=== PATIENT | female | born 1965 | race Caucasian/White ===

== ENCOUNTER 2017-03-31 07:36 | Observation (INO) | payer OTHER ==
[2017-03-31] MEDS ORDERED: Methylene Blue 50 MG/10 ML Ampule IV ONE (07:39)
[2017-03-31] MEDS: Lactated Ringers 1,000 ML IV SCH (08:02)
[2017-03-31] MEDS ORDERED: Scopolamine 1.5 MG Transdermal Patch TRDERM PRN (08:20)
--- NOTE | 2017-03-31 08:24 | PCM.PREANE ---
Preanesthetic Assessment - Anesthesia/Transfusion/Family Hx Anesthesia History: Prior Anesthesia Without Reaction Type of Anesthesia Reaction: Excessive Nausea/Vomiting Family History of Anesthesia Reaction: No Transfusion History: No Prior Transfusion(s) - Review of Systems General: No Symptoms Pulmonary: No Symptoms Cardiovascular: No Symptoms Gastrointestinal: No symptoms Neurological: No Symptoms Other: Reports: None - Physical Assessment O2 Sat by Pulse Oximetry: 98 Respiratory Rate: 16 Vital Signs: Last Vital Signs Temp 36.4 C 03/31/17 08:06 Pulse 58 L 03/31/17 08:06 Resp 16 03/31/17 08:06 BP 121/56 L 03/31/17 08:06 Pulse Ox 98 03/31/17 08:06 Height: 1.68 m Weight: 84.822 kg ASA Class: 3 Mental Status: Alert & Oriented x3 Airway Class: Mallampati = 2 Dentition: Reports: Normal Dentition (permanent retainer at the bottom) Thyro-Mental Finger Breadths: 3 Mouth Opening Finger Breadths: 2 ROM/Head Extension: Full Lungs: Clear to auscultation, Normal respiratory effort Cardiovascular: Regular Rate, Regular Rhythm - Allergies Allergies/Adverse Reactions: Allergies Allergy/AdvReac Type Severity Reaction Status Date / Time erythromycin base Allergy Rash Verified 03/25/17 13:00 Sulfa (Sulfonamide Allergy Rash Verified 03/25/17 13:00 Antibiotics) - Blood Blood Available: No - Anesthesia Plan Pre-Op Medication Ordered: None - Acknowledgements Anesthesia Type Planned: General Anesthesia Pt an Appropriate Candidate for the Planned Anesthesia: Yes Alternatives and Risks of Anesthesia Discussed w Pt/Guardian: Yes Pt/Guardian Understands and Agrees with Anesthesia Plan: Yes PreAnesthesia Questionnaire HEENT History: Reports: None Cardiovascular History: Reports: Other (See Below) (h/o hypertension) Gastrointestinal History: Reports: None Genitourinary History: Reports: None Psychiatric History: Reports: Anxiety, Depression Oncologic (Cancer) History: Reports: Breast (rt. breast cancer- received 5 cycles of chemo) - Past Surgical History Head Surgeries/Procedures: Reports: None HEENT Surgical History: Reports: Tonsillectomy GI Surgical History: Reports: Bariatric Procedure, Cholecystectomy Other GI Surgeries/Procedures: lap band Female Surgical History: Reports: Hysterectomy, Mastectomy, Salpingo- Oophorectomy Other Surgical History Comment: port-a-cath placement and removal on the left, than placement on the righr side - SUBSTANCE USE Smoking Status *Q: Never Smoker Recreational Drug Use History: No - HOME MEDS Home Medications: Home Meds Diphenoxylate HCl/Atropine [Diphenoxylate-Atrop 2.5-0.025] 1 tab PO ASDIRECTED PRN 03/25/17 [History] Escitalopram Oxalate 5 mg PO DAILY 03/25/17 [History] LORazepam [Ativan] 0.5 mg PO ASDIRECTED PRN 03/25/17 [History] Melatonin 3 mg PO ASDIRECTED PRN 03/25/17 [History] Metoclopramide HCl 10 mg PO ASDIRECTED PRN 03/25/17 [History] Ondansetron HCl [Zofran] 8 mg PO ASDIRECTED PRN 03/25/17 [History] - CURRENT (IN HOUSE) MEDS Current Meds: Current Medications Hydrocodone Bitart/Acetaminophen ([place] 325-5 Mg) 1 tab PO Q4H PRN PRN Reason: Pain Bupivacaine HCl/Epinephrine Bitart (Marcaine 0.25%/Epinephrine 1:200,000) 40 ml INJECT ONETIME ONE Stop: 03/31/17 09:01 Cephalexin (Keflex) 500 mg PO Q6HR [facility] Lactated Ringer's (Ringers, Lactated) 1,000 mls @ 125 mls/hr IV ASDIRECTED [facility] Last Admin: 03/31/17 08:02 Dose: 125 mls/hr Cefazolin Sodium/Dextrose 2 gm (/ Premix) 50 mls @ 100 mls/hr IV ONETIME ONE Stop: 03/31/17 09:29 Ibuprofen (Motrin) 600 mg PO Q6H PRN PRN Reason: Pain Morphine Sulfate (Morphine) 2 mg IVPUSH Q2H PRN PRN Reason: Pain Ondansetron HCl (Zofran Odt) 4 mg PO Q4H PRN PRN Reason: Nausea/Vomiting Ondansetron HCl (Zofran) 4 mg IVPUSH Q6H PRN PRN Reason: Nausea/Vomiting Discontinued Medications Methylene Blue (Provayblue) Confirm Administered Dose 50 mg IV .STK-MED ONE Stop: 03/31/17 07:40
[2017-03-31] MEDS ORDERED: ceFAZolin 2 GM in Premix Bag 1 BAG IV ONE (09:00)
[2017-03-31] MEDS ORDERED: Bupivacaine 0.25%/EPINEPHrine 1:200,000 10 ML SDV INJECT ONE (09:00)
[2017-03-31] MEDS ORDERED: Bupivacaine 0.25%/EPINEPHrine 1:200,000 10 ML SDV ONE ×2 (09:10→13:20)
[2017-03-31] MEDS ORDERED: Gentamicin 40 MG/ML 2 ML Vial ONE (09:10)
[2017-03-31] MEDS ORDERED: ceFAZolin 1 GM Vial ONE (09:11)
[2017-03-31] MEDS ORDERED: EPINEPHrine 1 MG/ML SDV ONE (09:11)
[2017-03-31] MEDS ORDERED: Lidocaine 2% 5 ML SDV ONE (12:38)
[2017-03-31] MEDS ORDERED: Midazolam 1 MG/ML 2 ML SDV ONE (12:39)
[2017-03-31] MEDS ORDERED: Propofol 200 MG/20 ML SDV ONE ×2 (12:39→14:54)
[2017-03-31] MEDS ORDERED: fentaNYL 100 MCG/2 ML SDV ONE ×2 (12:39→15:46)
[2017-03-31] MEDS ORDERED: fentaNYL 250 MCG/5 ML SDV ONE (12:39)
[2017-03-31] MEDS ORDERED: Succinylcholine/Normal Saline 200 MG/10 ML Syringe ONE (12:40)
[2017-03-31] MEDS ORDERED: Ondansetron 4 MG/2 ML SDV ONE (12:40)
[2017-03-31] MEDS ORDERED: HYDROmorphone 2 MG/ML Syringe ONE (12:47)
[2017-03-31] MEDS ORDERED: Bupivacaine Liposome 1.3% 20 ML SDV INJECT ONE (14:56)
[2017-03-31] MEDS ORDERED: Neostigmine Methylsulfate 1 MG/ML 5 ML Syringe ONE (15:05)
[2017-03-31] MEDS ORDERED: Rocuronium 10 MG/ML 10 ML Syringe ONE ×2 (15:05→17:09)
[2017-03-31] MEDS ORDERED: Promethazine 25 MG/ML SDV IM PRN (17:33)
--- NOTE | 2017-03-31 19:01 | PCM.OPNOTE ---
- General Post-Op/Procedure Note Date of Surgery/Procedure: 03/31/17 Operative Procedure(s): bilatera breast reconstruction with submuscular silicone implant and allomax (after [place] - bilateral mastectomy and right axillary dissection.) Pre Op Diagnosis: breast cancer - need for reconstruction Post-Op Diagnosis: Same Anesthesia Technique: General ET tube, Local Primary Surgeon: Luciana Epstein Mine Technician: Deb Thomas Complications: None Condition: Good
[2017-03-31] MEDS: fentaNYL 100 MCG/2 ML SDV IVPUSH PRN ×2 (19:14→19:22)
--- NOTE | 2017-03-31 19:31 | PCM.POSTAN ---
POST ANESTHESIA ASSESSMENT - MENTAL STATUS Mental Status: alert, oriented - RESPIRATORY Respiratory Status: respiratory rate WNL, airway patent, O2 saturation stable - CARDIOVASCULAR CV Status: pulse rate WNL, blood pressure stable - GASTROINTESTINAL GI Status: no symptoms - POST OP HYDRATION Hydration Status: adequate & stable
[2017-03-31] MEDS: Ondansetron 4 MG/2 ML SDV IVPUSH PRN (20:19)
[2017-03-31] MEDS: Morphine 2 MG/ML Syringe IVPUSH PRN ×2 (20:20→21:49)
--- NOTE | 2017-03-31 20:50 | PCM48HPAN ---
Post Anesthesia Note - EVALUATION WITHIN 48HRS OF ANESTHETIC Vital Signs in Normal Range: Yes Patient Participated in Evaluation: Yes Respiratory Function Stable: Yes Airway Patent: Yes Cardiovascular Function Stable: Yes Hydration Status Stable: Yes Pain Control Satisfactory: Yes Nausea and Vomiting Control Satisfactory: Yes Mental Status Recovered: Yes
[2017-03-31] MEDS: Cephalexin 500 MG Cap PO SCH (20:52)
[2017-03-31] MEDS: Cyclobenzaprine 10 MG Tab PO SCH (21:47)
[2017-03-31] MEDS: Acetaminophen/HYDROcodone 325-5 MG Tab PO PRN (21:48)
--- NOTE | 2017-04-01 00:03 | OR ---
SURGEON: RUSSELL CARTY MD DATE OF PROCEDURE: 03/31/2017 PREOPERATIVE DIAGNOSIS: Invasive ductal carcinoma, right breast. POSTOPERATIVE DIAGNOSIS: Invasive ductal carcinoma, right breast. PROCEDURE PERFORMED: Bilateral mastectomy, left axillary sentinel lymph node biopsy, level 1 and 2 right-sided axillary lymph node dissection. ASSISTANTS: event marketing assistant: Dr. Luciana Epstein, second per diem physical therapist assistant: MICHELA Perez. ANESTHESIA: General endotracheal anesthesia. FLUIDS: Please see anesthesia record. URINE OUTPUT: Please see anesthesia record. ESTIMATED BLOOD LOSS: Please see Dr. Luciana Epstein's note for final EBL. During my portion of the case, the patient had approximately 100 mL of blood loss. FINDINGS: Three sentinel lymph nodes taken from the left axilla negative for malignancy, bilateral mastectomy, and level 1 and 2 axillary lymph node dissection on the right side with preservation of the thoracodorsal and long thoracic nerves. COMPLICATIONS: None. INDICATIONS: The patient is a 51-year-old female, who presents with stage III invasive ductal carcinoma of the right breast. The patient underwent neoadjuvant chemotherapy and presented for surgical consultation. After discussion of the options, the patient would like a bilateral mastectomy. Given axillary lymph node involvement in her initial imaging, she will need a right axillary lymph node dissection. The patient had a questionable lesion on the left, so the decision was made to perform a sentinel lymph node biopsy on the left. The patient and I discussed the procedure as well as expected perioperative course. We discussed the risks, including bleeding, infection, or damage to surrounding structures, particularly lymphedema of either arm, but more so on the right. We discussed damage of the nerves within the right axilla. The patient verbalized understanding and wishes to proceed. PROCEDURE IN DETAIL: The patient was brought to the operating room and placed on the OR table in supine position. A time-out was completed verifying the patient's name, age, date of , allergies, and procedure to be performed. Prior to the arriving in the OR, the patient had undergone lymphoscintigraphy of the left breast in Radiology approximately 1 hour beforehand. General endotracheal anesthesia was induced. The neck, chest wall, and bilateral axilla were prepped and draped in the usual standard fashion. A 5 mL of Lymphazurin blue was injected underneath the nipple on the left axilla. This was given 5 minutes to allow adequate dispersion of the blue dye. Using a Tello counter, I located an area in the left axilla of maximum radioactivity. A 5-cm incision was made over the left axilla above this area. Using the Correll counter to direct my dissection, I dissected through the subcutaneous tissues into the axillary lymph node tissue. An area of bright blue lymph node was noted. These were removed. Measurement of maximum radioactivity was approximately 2400. The other lymph node radioactivity was greater than 10% of this. After these lymph nodes had been removed and sent to pathology, I and Dr. Epstein both inspected the axilla with the Sd counter. No further radioactivity was noted and no other areas of blue-appearing lymph nodes were seen. Hemostasis was achieved with electrocautery, and then I packed the area with a dry lap. Attention was then turned to the left chest wall. During my axillary lymph node dissection, Dr. Epstein had begun creating skin flaps over the left breast. Once her skin flaps were created, she turned the case over to me. Using cautery, I dissected the left breast off the chest wall taking care to cauterize any bleeding vessels on the chest wall. The left breast was dissected in a medial to lateral fashion and passed off the field as left breast tissue. While I was doing this, Dr. Epstein incised and created skin flaps on the right breast. Once she was done with that, I then removed the right breast from the right chest wall using electrocautery in a similar fashion. This breast was removed laterally at the level of the axillary fat. It was sent to pathology labeled as right breast. I then began my axillary lymph node dissection. The clavipectoral fascia was incised along the edge of the pectoralis major, and the pectoralis major and minor were freed from surrounding fat and jluis tissue. Dissection progressed first from underneath the pectoralis major, and then underneath the pectoralis muscle. The pectoralis muscles were retracted medially with a Church retractor. The medial pectoral neurovascular bundle was identified and preserved. The level 2 node tissue deep in the pectoralis minor was included in the dissection. The axillary vein was then identified and cleared of overlying fat. The first branch of the axillary vein was noted and the thoracodorsal was identified deep to it. The long thoracic nerve was identified along the edge of the latissimus dorsi on the chest wall and preserved. The remaining jluis tissue between the nerves was then carefully removed taking care to protect the nerves. Specimen containing the jluis tissue was then excised along the lateral edge and sent to pathology. The case was then turned over to Dr. Luciana Epstein for reconstruction. Please see her note for further details. CRISTINE RM /[id number]
[2017-04-01] MEDS: Ondansetron 4 MG/2 ML SDV IVPUSH PRN ×2 (00:59→06:44)
[2017-04-01] MEDS: Cephalexin 500 MG Cap PO SCH ×4 (00:59→18:08)
[2017-04-01] MEDS: Morphine 2 MG/ML Syringe IVPUSH PRN ×2 (01:00→06:56)
[2017-04-01] MEDS: Lactated Ringers 1,000 ML IV SCH (03:13)
[2017-04-01] MEDS: Acetaminophen/HYDROcodone 325-5 MG Tab PO PRN ×2 (03:52→08:02)
[2017-04-01] MEDS: Cyclobenzaprine 10 MG Tab PO SCH ×3 (06:44→22:09)
[2017-04-01] MEDS ORDERED: hydrOXYzine HCl 25 MG Tab PO PRN (08:54)
--- NOTE | 2017-04-01 10:58 | PCM.SURGPN ---
- General Info Date of Service: 04/01/17 Date of Surgery/Procedure: 03/31/17 POD#: 1 Post-Op Diagnosis: Right breast invasive ductal carcinoma Functional Status: Reports: pain controlled, tolerating diet, ambulating, urinating, other (Slight tingling in finger tips this am. Elevated arm and it is now gone. ) - Review of Systems General: Reports: No Symptoms HEENT: Reports: no symptoms Pulmonary: Reports: no symptoms Cardiovascular: Reports: No Symptoms Gastrointestinal: Reports: No symptoms Musculoskeletal: Reports: no symptoms Skin: Reports: no symptoms - Patient Data Vitals - most recent: Last Vital Signs Temp 36.6 C 04/01/17 08:27 Pulse 84 04/01/17 08:27 Resp 20 04/01/17 08:27 BP 95/55 L 04/01/17 08:27 Pulse Ox 93 L 04/01/17 08:27 Weight - most recent: 83.915 kg I&O - last 24 hours: Intake & Output 03/31/17 04/01/17 04/01/17 22:59 06:59 14:59 Intake Total 4000 1650 200 Output Total 90 720 630 Balance 3910 930 -430 Med Orders - Current: Current Medications Hydrocodone Bitart/Acetaminophen ([place] 325-10 Mg) 1 tab PO Q4H PRN PRN Reason: Pain Cephalexin (Keflex) 500 mg PO Q6HR [facility] Last Admin: 04/01/17 06:44 Dose: 500 mg Cyclobenzaprine HCl (Flexeril) 10 mg PO TID [facility] Last Admin: 04/01/17 06:44 Dose: 10 mg Fentanyl (Sublimaze) 50 mcg IVPUSH Q5M PRN PRN Reason: Pain (severe 7-10) Stop: 04/01/17 18:50 Last Admin: 03/31/17 19:22 Dose: 50 mcg Hydroxyzine HCl (Atarax) 25 mg PO Q6H PRN PRN Reason: Itching Last Admin: 04/01/17 09:32 Dose: 25 mg Ibuprofen (Motrin) 600 mg PO Q6H PRN PRN Reason: Pain Morphine Sulfate (Morphine) 2 mg IVPUSH Q2H PRN PRN Reason: Pain Last Admin: 04/01/17 06:56 Dose: 2 mg Ondansetron HCl (Zofran Odt) 4 mg PO Q4H PRN PRN Reason: Nausea/Vomiting Promethazine HCl (Phenergan) 25 mg IM Q6H PRN PRN Reason: Nausea Scopolamine (Transderm-Scop) 1.5 mg TRDERM Q72H PRN PRN Reason: Nausea Last Admin: 03/31/17 12:19 Dose: 1.5 mg Discontinued Medications Hydrocodone Bitart/Acetaminophen ([place] 325-5 Mg) 1 tab PO Q4H PRN PRN Reason: Pain Last Admin: 04/01/17 08:02 Dose: 2 tab Bupivacaine HCl/Epinephrine Bitart ([place]aine 0.25%/Epinephrine 1:200,000) 40 ml INJECT ONETIME ONE Stop: 03/31/17 09:01 Last Admin: 03/31/17 20:21 Dose: Not Given Bupivacaine HCl/Epinephrine Bitart ([place] 0.25%/Epinephrine 1:200,000) Confirm Administered Dose 30 ml .ROUTE .STK-MED ONE Stop: 03/31/17 09:11 Bupivacaine HCl/Epinephrine Bitart ([place] 0.25%/Epinephrine 1:200,000) Confirm Administered Dose 30 ml .ROUTE .STK-MED ONE Stop: 03/31/17 13:21 Bupivacaine Liposome (Exparel) 0 ml INJECT .STK-MED ONE Stop: 03/31/17 14:57 Cefazolin Sodium (Ancef) Confirm Administered Dose 1 gm .ROUTE .STK-MED ONE Stop: 03/31/17 09:12 Epinephrine HCl (Adrenalin 1:1000) Confirm Administered Dose 1 mg .ROUTE .STK- MED ONE Stop: 03/31/17 09:12 Fentanyl (Sublimaze) Confirm Administered Dose 100 mcg .ROUTE .STK-MED ONE Stop: 03/31/17 12:40 Fentanyl (Sublimaze) Confirm Administered Dose 250 mcg .ROUTE .STK-MED ONE Stop: 03/31/17 12:40 Fentanyl (Sublimaze) Confirm Administered Dose 100 mcg .ROUTE .STK-MED ONE Stop: 03/31/17 15:47 Gentamicin Sulfate (Gentamicin) Confirm Administered Dose 80 mg .ROUTE .STK-MED ONE Stop: 03/31/17 09:11 Glycopyrrolate () Confirm Administered Dose 2 mg .ROUTE .STK-MED ONE Stop: 03/31/17 15:06 Hydromorphone HCl (Dilaudid) Confirm Administered Dose 2 mg .ROUTE .STK-MED ONE Stop: 03/31/17 12:48 Lactated Ringer's (Ringers, Lactated) 1,000 mls @ 125 mls/hr IV ASDIRECTED [facility] Last Admin: 04/01/17 03:13 Dose: 125 mls/hr Cefazolin Sodium/Dextrose 2 gm (/ Premix) 50 mls @ 100 mls/hr IV ONETIME ONE Stop: 03/31/17 09:29 Last Admin: 03/31/17 20:21 Dose: Not Given Lidocaine (Xylocaine-Mpf 2%) Confirm Administered Dose 10 ml .ROUTE .STK-MED ONE Stop: 03/31/17 12:39 Methylene Blue (Provayblue) Confirm Administered Dose 50 mg IV .STK-MED ONE Stop: 03/31/17 07:40 Midazolam HCl (Versed 1 Mg/Ml) Confirm Administered Dose 2 mg .ROUTE .STK-MED ONE Stop: 03/31/17 12:40 Neostigmine Methylsulfate (Neostigmine) Confirm Administered Dose 5 mg .ROUTE .STK-MED ONE Stop: 03/31/17 15:06 Ondansetron HCl (Zofran) 4 mg IVPUSH Q6H PRN PRN Reason: Nausea/Vomiting Last Admin: 04/01/17 06:44 Dose: 4 mg Ondansetron HCl (Zofran) Confirm Administered Dose 8 mg .ROUTE .STK-MED ONE Stop: 03/31/17 12:41 Propofol (Diprivan 20 Ml) Confirm Administered Dose 400 mg .ROUTE .STK-MED ONE Stop: 03/31/17 12:40 Propofol (Diprivan 20 Ml) Confirm Administered Dose 1,600 mg .ROUTE .STK-MED ONE Stop: 03/31/17 14:55 Rocuronium [place] (Zemuron) Confirm Administered Dose 100 mg .ROUTE .STK-MED ONE Stop: 03/31/17 15:06 Rocuronium [place] (Zemuron) Confirm Administered Dose 100 mg .ROUTE .STK-MED ONE Stop: 03/31/17 17:10 Succinylcholine Chloride (Succinylcholine In Ns Pf) Confirm Administered Dose 200 mg .ROUTE .STK-MED ONE Stop: 03/31/17 12:41 - Exam Wound/Incisions: healing well, dressing dry and intact, other (Drains with serosanguinous output) General: alert, oriented, cooperative, no acute distress Lungs: Normal respiratory effort Cardiovascular: Regular Rate Extremities: no edema, no tenderness/swelling Skin: warm, dry, intact Neurological: no new focal deficit, strength equal bilateral, sensation intact, other (No winging of scapula ) Psy/Mental Status: alert, normal affect - Problem List & Annotations (1) Breast cancer in female SNOMED Code(s): 211667329 Code(s): C50.919 - MALIGNANT NEOPLASM OF UNSP SITE OF UNSPECIFIED FEMALE BREAST Status: Acute Current Visit: Yes - Problem List Review Problem List Initiated/Reviewed/Updated: Yes - My Orders Last 24 Hours: Active Orders 24 hr Category Date Time Status Communication Order [RC] ROUTINE Care 04/01/17 08:54 Active Communication Order [RC] ROUTINE Care 04/01/17 08:55 Active Drain Management [RC] ASDIRECTED Care 03/31/17 14:00 Active Elevate Extremity [RC] CONTINUOUS Care 04/01/17 08:55 Active Wound Care [RC] DAILY Care 04/01/17 08:00 Active General [Regular Diet] [DIET] Diet 03/31/17 Dinner Active Surgical Specimen Breast [MY] Routine Exams 04/01/17 08:33 Taken Acetaminophen/HYDROcodone [[place] 325-10 MG] Med 04/01/17 08:51 Active 1 tab PO Q4H PRN Cephalexin [Keflex] Med 03/31/17 18:00 Active 500 mg PO Q6HR Cyclobenzaprine [Flexeril] Med 03/31/17 22:00 Active 10 mg PO TID Ibuprofen [Motrin] Med 03/31/17 16:21 Active 600 mg PO Q6H PRN Morphine Med 03/31/17 14:00 Active 2 mg IVPUSH Q2H PRN Ondansetron [Zofran ODT] Med 03/31/17 16:21 Active 4 mg PO Q4H PRN Promethazine [Phenergan] Med 03/31/17 17:33 Active 25 mg IM Q6H PRN fentaNYL [Sublimaze] Med 03/31/17 18:50 Active 50 mcg IVPUSH Q5M PRN hydrOXYzine HCl [Atarax] Med 04/01/17 08:54 Active 25 mg PO Q6H PRN Medication Orders Hydrocodone Bitart/Acetaminophen ([place] 325-10 Mg) 1 tab PO Q4H PRN PRN Reason: Pain Cephalexin (Keflex) 500 mg PO Q6HR [facility] Last Admin: 04/01/17 06:44 Dose: 500 mg Admin: 04/01/17 00:59 Dose: 500 mg Admin: 03/31/17 20:52 Dose: Not Given Cyclobenzaprine HCl (Flexeril) 10 mg PO TID [facility] Last Admin: 04/01/17 06:44 Dose: 10 mg Admin: 03/31/17 21:47 Dose: 10 mg Fentanyl (Sublimaze) 50 mcg IVPUSH Q5M PRN PRN Reason: Pain (severe 7-10) Stop: 04/01/17 18:50 Last Admin: 03/31/17 19:22 Dose: 50 mcg Admin: 03/31/17 19:14 Dose: 50 mcg Hydroxyzine HCl (Atarax) 25 mg PO Q6H PRN PRN Reason: Itching Last Admin: 04/01/17 09:32 Dose: 25 mg Ibuprofen (Motrin) 600 mg PO Q6H PRN PRN Reason: Pain Morphine Sulfate (Morphine) 2 mg IVPUSH Q2H PRN PRN Reason: Pain Last Admin: 04/01/17 06:56 Dose: 2 mg Admin: 04/01/17 01:00 Dose: 2 mg Admin: 03/31/17 21:49 Dose: 2 mg Admin: 03/31/17 20:20 Dose: 2 mg Ondansetron HCl (Zofran Odt) 4 mg PO Q4H PRN PRN Reason: Nausea/Vomiting Promethazine HCl (Phenergan) 25 mg IM Q6H PRN PRN Reason: Nausea Scopolamine (Transderm-Scop) 1.5 mg TRDERM Q72H PRN PRN Reason: Nausea Last Admin: 03/31/17 12:19 Dose: 1.5 mg - Plan Plan (Free Text/Narrative):: -Doing well from my standpoint. Agree with continuing to keep right arm elevated. No evidence of any edema on that side at this time. No IVs or blood pressure cuffs to right arm. Pain managed with current regiment. Remainder of cares per Dr. Epstein's recommendations. Will continue to follow until discharge.
[2017-04-01] MEDS: Ondansetron 4 MG Tab.DIS PO PRN ×2 (12:05→18:08)
[2017-04-01] MEDS: Acetaminophen/HYDROcodone 325-10 MG Tab PO PRN ×3 (12:05→22:09)
[2017-04-01] MEDS: Ibuprofen 600 MG Tab PO PRN (15:09)
[2017-04-01] MEDS: hydrOXYzine HCl 25 MG Tab PO PRN ×2 (15:09→19:12)
--- NOTE | 2017-04-01 15:31 | MY ---
EXAMINATION: Specimen mammogram HISTORY: Breast cancer COMPARISON: None TECHNIQUE: 2 images obtained. FINDINGS/IMPRESSION: Specimen mammogram postmastectomy demonstrates several ill-defined asymmetries however the definitive mass is not identified. However the original mammograms are not available for comparison.
--- NOTE | 2017-04-01 16:40 | PCM.PN ---
- General Info Date of Service: 04/01/17 Admission Dx/Problem (Free Text): s/p breast reconstruction pod 1 Subjective Update: pain improving. IV removed from the right and they will use oral. Attempted new IV but no luck. Hopefully we can avoid but if needed we can access her port. Functional Status: Reports: pain controlled, tolerating diet - Review of Systems General: Reports: No Symptoms HEENT: Reports: no symptoms Pulmonary: Reports: no symptoms, wheezing Cardiovascular: Reports: No Symptoms Musculoskeletal: Reports: other (chest soreness) Skin: Reports: bruising Neurological: Reports: Paresthesia (breast) - Patient Data Vitals - most recent: Last Vital Signs Temp 98.1 F 04/01/17 12:56 Pulse 82 04/01/17 12:56 Resp 19 04/01/17 12:56 BP 110/58 L 04/01/17 12:56 Pulse Ox 96 04/01/17 12:56 Weight - most recent: 185 lb I&O - last 24 hours: Intake & Output 04/01/17 04/01/17 04/01/17 07:59 15:59 23:59 Intake Total 1650 450 500 Output Total 805 1145 300 Balance 845 -695 200 Med Orders - Current: Current Medications Hydrocodone Bitart/Acetaminophen ([place] 325-10 Mg) 1 tab PO Q4H PRN PRN Reason: Pain Last Admin: 04/01/17 12:05 Dose: 2 tab Cephalexin (Keflex) 500 mg PO Q6HR [facility] Last Admin: 04/01/17 12:05 Dose: 500 mg Cyclobenzaprine HCl (Flexeril) 10 mg PO TID [facility] Last Admin: 04/01/17 13:43 Dose: 10 mg Fentanyl (Sublimaze) 50 mcg IVPUSH Q5M PRN PRN Reason: Pain (severe 7-10) Stop: 04/01/17 18:50 Last Admin: 03/31/17 19:22 Dose: 50 mcg Hydroxyzine HCl (Atarax) 25 mg PO Q4H PRN PRN Reason: Itching Last Admin: 04/01/17 15:09 Dose: 25 mg Ibuprofen (Motrin) 600 mg PO Q6H PRN PRN Reason: Pain Last Admin: 04/01/17 15:09 Dose: 600 mg Morphine Sulfate (Morphine) 2 mg IVPUSH Q2H PRN PRN Reason: Pain Last Admin: 04/01/17 06:56 Dose: 2 mg Ondansetron HCl (Zofran Odt) 4 mg PO Q4H PRN PRN Reason: Nausea/Vomiting Last Admin: 04/01/17 12:05 Dose: 4 mg Promethazine HCl (Phenergan) 25 mg IM Q6H PRN PRN Reason: Nausea Scopolamine (Transderm-Scop) 1.5 mg TRDERM Q72H PRN PRN Reason: Nausea Last Admin: 03/31/17 12:19 Dose: 1.5 mg Discontinued Medications Hydrocodone Bitart/Acetaminophen ([place] 325-5 Mg) 1 tab PO Q4H PRN PRN Reason: Pain Last Admin: 04/01/17 08:02 Dose: 2 tab Bupivacaine HCl/Epinephrine Bitart ([place] 0.25%/Epinephrine 1:200,000) 40 ml INJECT ONETIME ONE Stop: 03/31/17 09:01 Last Admin: 03/31/17 20:21 Dose: Not Given Bupivacaine HCl/Epinephrine Bitart ([place] 0.25%/Epinephrine 1:200,000) Confirm Administered Dose 30 ml .ROUTE .STK-MED ONE Stop: 03/31/17 09:11 Bupivacaine HCl/Epinephrine Bitart ([place] 0.25%/Epinephrine 1:200,000) Confirm Administered Dose 30 ml .ROUTE .STK-MED ONE Stop: 03/31/17 13:21 Bupivacaine Liposome (Exparel) 0 ml INJECT .STK-MED ONE Stop: 03/31/17 14:57 Cefazolin Sodium (Ancef) Confirm Administered Dose 1 gm .ROUTE .STK-MED ONE Stop: 03/31/17 09:12 Epinephrine HCl (Adrenalin 1:1000) Confirm Administered Dose 1 mg .ROUTE .STK- MED ONE Stop: 03/31/17 09:12 Fentanyl (Sublimaze) Confirm Administered Dose 100 mcg .ROUTE .STK-MED ONE Stop: 03/31/17 12:40 Fentanyl (Sublimaze) Confirm Administered Dose 250 mcg .ROUTE .STK-MED ONE Stop: 03/31/17 12:40 Fentanyl (Sublimaze) Confirm Administered Dose 100 mcg .ROUTE .STK-MED ONE Stop: 03/31/17 15:47 Gentamicin Sulfate (Gentamicin) Confirm Administered Dose 80 mg .ROUTE .STK-MED ONE Stop: 03/31/17 09:11 Glycopyrrolate () Confirm Administered Dose 2 mg .ROUTE .STK-MED ONE Stop: 03/31/17 15:06 Hydromorphone HCl (Dilaudid) Confirm Administered Dose 2 mg .ROUTE .STK-MED ONE Stop: 03/31/17 12:48 Hydroxyzine HCl (Atarax) 25 mg PO Q6H PRN PRN Reason: Itching Last Admin: 04/01/17 09:32 Dose: 25 mg Lactated Ringer's (Ringers, Lactated) 1,000 mls @ 125 mls/hr IV ASDIRECTED MICHELINE Last Admin: 04/01/17 03:13 Dose: 125 mls/hr Cefazolin Sodium/Dextrose 2 gm (/ Premix) 50 mls @ 100 mls/hr IV ONETIME ONE Stop: 03/31/17 09:29 Last Admin: 03/31/17 20:21 Dose: Not Given Lidocaine (Xylocaine-Mpf 2%) Confirm Administered Dose 10 ml .ROUTE .STK-MED ONE Stop: 03/31/17 12:39 Methylene Blue (Provayblue) Confirm Administered Dose 50 mg IV .STK-MED ONE Stop: 03/31/17 07:40 Midazolam HCl (Versed 1 Mg/Ml) Confirm Administered Dose 2 mg .ROUTE .STK-MED ONE Stop: 03/31/17 12:40 Neostigmine Methylsulfate (Neostigmine) Confirm Administered Dose 5 mg .ROUTE .STK-MED ONE Stop: 03/31/17 15:06 Ondansetron HCl (Zofran) 4 mg IVPUSH Q6H PRN PRN Reason: Nausea/Vomiting Last Admin: 04/01/17 06:44 Dose: 4 mg Ondansetron HCl (Zofran) Confirm Administered Dose 8 mg .ROUTE .STK-MED ONE Stop: 03/31/17 12:41 Propofol (Diprivan 20 Ml) Confirm Administered Dose 400 mg .ROUTE .STK-MED ONE Stop: 03/31/17 12:40 Propofol (Diprivan 20 Ml) Confirm Administered Dose 1,600 mg .ROUTE .STK-MED ONE Stop: 03/31/17 14:55 Rocuronium [place] (Zemuron) Confirm Administered Dose 100 mg .ROUTE .STK-MED ONE Stop: 03/31/17 15:06 Rocuronium [place] (Zemuron) Confirm Administered Dose 100 mg .ROUTE .STK-MED ONE Stop: 03/31/17 17:10 Succinylcholine Chloride (Succinylcholine In Ns Pf) Confirm Administered Dose 200 mg .ROUTE .STK-MED ONE Stop: 03/31/17 12:41 - Exam General: alert, oriented, cooperative, no acute distress Lungs: Normal respiratory effort Skin: warm, dry, intact Wound/Incisions: dressing dry and intact, drainage (in VANITA's as expected. Bra in place. Dressing change later today. ) Neurological: no new focal deficit Psy/Mental Status: alert, normal affect - Problem List & Annotations (1) Admission for breast reconstruction following mastectomy SNOMED Code(s): 254012176 Code(s): Z42.1 - ENCOUNTER FOR BREAST RECONSTRUCTION FOLLOWING MASTECTOMY Status: Acute Priority: High Current Visit: Yes (2) Breast cancer in female SNOMED Code(s): 434346164 Code(s): C50.919 - MALIGNANT NEOPLASM OF UNSP SITE OF UNSPECIFIED FEMALE BREAST Status: Acute Priority: High Current Visit: Yes Qualifiers: Breast location: upper outer quadrant of breast Estrogen receptor status: unspecified Laterality: right Qualified Code(s): C50.411 - Malignant neoplasm of upper-outer quadrant of right female breast - Problem List Review Problem List Initiated/Reviewed/Updated: Yes - My Orders Last 24 Hours: My Active Orders 03/31/17 16:21 Ibuprofen [Motrin] 600 mg PO Q6H PRN Ondansetron [Zofran ODT] 4 mg PO Q4H PRN 03/31/17 18:00 Cephalexin [Keflex] 500 mg PO Q6HR 03/31/17 Dinner General [Regular Diet] [DIET] 04/01/17 08:00 Wound Care [RC] DAILY 04/01/17 08:51 Acetaminophen/HYDROcodone [[place] 325-10 MG] 1 tab PO Q4H PRN 04/01/17 08:54 Communication Order [RC] ROUTINE 04/01/17 08:55 Communication Order [RC] ROUTINE Elevate Extremity [RC] CONTINUOUS 04/01/17 14:50 hydrOXYzine HCl [Atarax] 25 mg PO Q4H PRN - Plan Plan:: continue PAS boot and ambulation - hold on lovenox as patient will likely be discharged tomorrow. pain control - oral medication and IV if needed - will access port if needs additional pain control or attempt new IV with anesthesia. nausea medication continues VANITA cares continue compression bra continues flexeril for muscle relaxation continues plan discharge tomorrow if feeling well.
[2017-04-02] MEDS: Ondansetron 4 MG Tab.DIS PO PRN ×5 (00:04→23:08)
[2017-04-02] MEDS: Cephalexin 500 MG Cap PO SCH ×5 (00:04→23:08)
[2017-04-02] MEDS: hydrOXYzine HCl 25 MG Tab PO PRN ×3 (00:07→08:28)
[2017-04-02] MEDS: Acetaminophen/HYDROcodone 325-10 MG Tab PO PRN ×3 (04:14→21:01)
[2017-04-02] MEDS: Cyclobenzaprine 10 MG Tab PO SCH ×3 (05:55→21:02)
--- NOTE | 2017-04-02 11:10 | PCM.PN ---
- General Info Date of Service: 04/02/17 Admission Dx/Problem (Free Text): s/p breast reconstruction pod 1 Subjective Update: pain improved significantly. Some 02 drop at night. No nausea. Severe itching. Getting up and around. We will adjust pain medications to hopefully help with itching and start Benadryl. Will stabilize this before discharge. Possible later today if stable with oral medications. Functional Status: Reports: pain controlled, tolerating diet, ambulating, urinating, incentive spirometry - Review of Systems General: Reports: No Symptoms HEENT: Reports: no symptoms Pulmonary: Reports: other (low 02 sats at night). Denies: shortness of breath Cardiovascular: Reports: No Symptoms Musculoskeletal: Reports: no symptoms Skin: Reports: no symptoms Neurological: Reports: No Symptoms Psychiatric: Reports: no symptoms - Patient Data Vitals - most recent: Last Vital Signs Temp 96.2 F 04/02/17 08:00 Pulse 91 04/02/17 08:00 Resp 16 04/02/17 08:00 BP 84/46 L 04/02/17 08:00 Pulse Ox 91 L 04/02/17 08:00 Weight - most recent: 185 lb I&O - last 24 hours: Intake & Output 04/01/17 04/02/17 04/02/17 23:59 07:59 15:59 Intake Total 650 200 400 Output Total 621 446 324 Balance 29 -246 76 Med Orders - Current: Current Medications Hydrocodone Bitart/Acetaminophen ([place] 325-10 Mg) 1 tab PO Q4H PRN PRN Reason: Pain Last Admin: 04/02/17 08:27 Dose: 2 tab Cephalexin (Keflex) 500 mg PO Q6HR [facility] Last Admin: 04/02/17 05:55 Dose: 500 mg Cyclobenzaprine HCl (Flexeril) 10 mg PO TID [facility] Last Admin: 04/02/17 05:55 Dose: 10 mg Diphenhydramine HCl (Benadryl) 25 mg PO Q6H PRN PRN Reason: Itching Hydroxyzine HCl (Atarax) 25 mg PO Q4H PRN PRN Reason: Itching Last Admin: 04/02/17 08:28 Dose: 25 mg Ibuprofen (Motrin) 600 mg PO Q6H PRN PRN Reason: Pain Last Admin: 04/01/17 15:09 Dose: 600 mg Morphine Sulfate (Morphine) 2 mg IVPUSH Q2H PRN PRN Reason: Pain Last Admin: 04/01/17 06:56 Dose: 2 mg Ondansetron HCl (Zofran Odt) 4 mg PO Q4H PRN PRN Reason: Nausea/Vomiting Last Admin: 04/02/17 05:55 Dose: 4 mg Promethazine HCl (Phenergan) 25 mg IM Q6H PRN PRN Reason: Nausea Scopolamine (Transderm-Scop) 1.5 mg TRDERM Q72H PRN PRN Reason: Nausea Last Admin: 03/31/17 12:19 Dose: 1.5 mg Tramadol HCl (Ultram) 50 mg PO Q4H PRN PRN Reason: Pain Discontinued Medications Hydrocodone Bitart/Acetaminophen ([place] 325-5 Mg) 1 tab PO Q4H PRN PRN Reason: Pain Last Admin: 04/01/17 08:02 Dose: 2 tab Bupivacaine HCl/Epinephrine Bitart ([place] 0.25%/Epinephrine 1:200,000) 40 ml INJECT ONETIME ONE Stop: 03/31/17 09:01 Last Admin: 03/31/17 20:21 Dose: Not Given Bupivacaine HCl/Epinephrine Bitart ([place] 0.25%/Epinephrine 1:200,000) Confirm Administered Dose 30 ml .ROUTE .STK-MED ONE Stop: 03/31/17 09:11 Bupivacaine HCl/Epinephrine Bitart ([place] 0.25%/Epinephrine 1:200,000) Confirm Administered Dose 30 ml .ROUTE .STK-MED ONE Stop: 03/31/17 13:21 Bupivacaine Liposome (Exparel) 0 ml INJECT .STK-MED ONE Stop: 03/31/17 14:57 Cefazolin Sodium (Ancef) Confirm Administered Dose 1 gm .ROUTE .STK-MED ONE Stop: 03/31/17 09:12 Epinephrine HCl (Adrenalin 1:1000) Confirm Administered Dose 1 mg .ROUTE .STK- MED ONE Stop: 03/31/17 09:12 Fentanyl (Sublimaze) Confirm Administered Dose 100 mcg .ROUTE .STK-MED ONE Stop: 03/31/17 12:40 Fentanyl (Sublimaze) Confirm Administered Dose 250 mcg .ROUTE .STK-MED ONE Stop: 03/31/17 12:40 Fentanyl (Sublimaze) Confirm Administered Dose 100 mcg .ROUTE .STK-MED ONE Stop: 03/31/17 15:47 Fentanyl (Sublimaze) 50 mcg IVPUSH Q5M PRN PRN Reason: Pain (severe 7-10) Stop: 04/01/17 18:50 Last Admin: 03/31/17 19:22 Dose: 50 mcg Gentamicin Sulfate (Gentamicin) Confirm Administered Dose 80 mg .ROUTE .STK-MED ONE Stop: 03/31/17 09:11 Glycopyrrolate () Confirm Administered Dose 2 mg .ROUTE .STK-MED ONE Stop: 03/31/17 15:06 Hydromorphone HCl (Dilaudid) Confirm Administered Dose 2 mg .ROUTE .STK-MED ONE Stop: 03/31/17 12:48 Hydroxyzine HCl (Atarax) 25 mg PO Q6H PRN PRN Reason: Itching Last Admin: 04/01/17 09:32 Dose: 25 mg Lactated Ringer's (Ringers, Lactated) 1,000 mls @ 125 mls/hr IV ASDIRECTED MICHE[facility] Last Admin: 04/01/17 03:13 Dose: 125 mls/hr Cefazolin Sodium/Dextrose 2 gm (/ Premix) 50 mls @ 100 mls/hr IV ONETIME ONE Stop: 03/31/17 09:29 Last Admin: 03/31/17 20:21 Dose: Not Given Lidocaine (Xylocaine-Mpf 2%) Confirm Administered Dose 10 ml .ROUTE .STK-MED ONE Stop: 03/31/17 12:39 Methylene Blue (Provayblue) Confirm Administered Dose 50 mg IV .STK-MED ONE Stop: 03/31/17 07:40 Midazolam HCl (Versed 1 Mg/Ml) Confirm Administered Dose 2 mg .ROUTE .STK-MED ONE Stop: 03/31/17 12:40 Neostigmine Methylsulfate (Neostigmine) Confirm Administered Dose 5 mg .ROUTE .STK-MED ONE Stop: 03/31/17 15:06 Ondansetron HCl (Zofran) 4 mg IVPUSH Q6H PRN PRN Reason: Nausea/Vomiting Last Admin: 04/01/17 06:44 Dose: 4 mg Ondansetron HCl (Zofran) Confirm Administered Dose 8 mg .ROUTE .STK-MED ONE Stop: 03/31/17 12:41 Propofol (Diprivan 20 Ml) Confirm Administered Dose 400 mg .ROUTE .STK-MED ONE Stop: 03/31/17 12:40 Propofol (Diprivan 20 Ml) Confirm Administered Dose 1,600 mg .ROUTE .STK-MED ONE Stop: 03/31/17 14:55 Rocuronium [place] (Zemuron) Confirm Administered Dose 100 mg .ROUTE .STK-MED ONE Stop: 03/31/17 15:06 Rocuronium [place] (Zemuron) Confirm Administered Dose 100 mg .ROUTE .STK-MED ONE Stop: 03/31/17 17:10 Succinylcholine Chloride (Succinylcholine In Ns Pf) Confirm Administered Dose 200 mg .ROUTE .STK-MED ONE Stop: 03/31/17 12:41 - Exam Quality Assessment: supplemental oxygen (at night 1L. ), DVT prophylaxis (PAS boots and ambulatory. Holding on Lovenox. ) General: alert, oriented, cooperative HEENT: EOMI Lungs: Clear to auscultation, Normal respiratory effort Extremities: no edema Skin: warm, dry Wound/Incisions: healing well, dressing dry and intact, drainage (in VANITA's serosanguinous. outputs appropriate. ) Neurological: no new focal deficit Psy/Mental Status: alert, normal affect, normal mood - Problem List & Annotations (1) Admission for breast reconstruction following mastectomy SNOMED Code(s): 673159090 Code(s): Z42.1 - ENCOUNTER FOR BREAST RECONSTRUCTION FOLLOWING MASTECTOMY Status: Acute Priority: High Current Visit: Yes (2) Breast cancer in female SNOMED Code(s): 945862861 Code(s): C50.919 - MALIGNANT NEOPLASM OF UNSP SITE OF UNSPECIFIED FEMALE BREAST Status: Acute Priority: High Current Visit: Yes Qualifiers: Breast location: upper outer quadrant of breast Estrogen receptor status: unspecified Laterality: right Qualified Code(s): C50.411 - Malignant neoplasm of upper-outer quadrant of right female breast - Problem List Review Problem List Initiated/Reviewed/Updated: Yes - My Orders Last 24 Hours: My Active Orders 04/01/17 14:50 hydrOXYzine HCl [Atarax] 25 mg PO Q4H PRN 04/02/17 11:03 traMADol [Ultram] 50 mg PO Q4H PRN 04/02/17 11:05 diphenhydrAMINE [Benadryl] 25 mg PO Q6H PRN - Plan Plan:: continue PAS boot and ambulation - hold on lovenox as patient will likely be discharged today or tomorrow am. pain control - oral medication adjustment today for itching. nausea medication continues as needed. scopolamine patch still on. benadryl for itching VANITA cares continue compression bra continues flexeril for muscle relaxation continues plan discharge later today if feeling well.
[2017-04-02] MEDS: traMADol 50 MG Tab PO PRN ×3 (11:46→20:31)
[2017-04-02] MEDS: diphenhydrAMINE 25 MG Cap PO PRN ×2 (12:27→20:31)
--- NOTE | 2017-04-02 12:49 | PCM.SURGPN ---
- General Info Date of Service: 04/02/17 Date of Surgery/Procedure: 03/31/17 POD#: 2 Functional Status: Reports: pain controlled, tolerating diet, other (Patient continues to have itching all over. She denies any numbness tingling or swelling of the right arm. She's been keeping it elevated. She feels that the pain in her upper chest is improving.) - Review of Systems General: Reports: No Symptoms Pulmonary: Reports: no symptoms Cardiovascular: Reports: No Symptoms - Patient Data Vitals - most recent: Last Vital Signs Temp 35.7 C 04/02/17 08:00 Pulse 91 04/02/17 08:00 Resp 16 04/02/17 08:00 BP 84/46 L 04/02/17 08:00 Pulse Ox 91 L 04/02/17 08:00 Weight - most recent: 83.915 kg I&O - last 24 hours: Intake & Output 04/01/17 04/02/17 04/02/17 22:59 06:59 14:59 Intake Total 650 200 400 Output Total 621 446 324 Balance 29 -246 76 Med Orders - Current: Current Medications Hydrocodone Bitart/Acetaminophen ([place] 325-10 Mg) 1 tab PO Q4H PRN PRN Reason: Pain Last Admin: 04/02/17 08:27 Dose: 2 tab Cephalexin (Keflex) 500 mg PO Q6HR [facility] Last Admin: 04/02/17 11:46 Dose: 500 mg Cyclobenzaprine HCl (Flexeril) 10 mg PO TID [facility] Last Admin: 04/02/17 05:55 Dose: 10 mg Diphenhydramine HCl (Benadryl) 25 mg PO Q6H PRN PRN Reason: Itching Last Admin: 04/02/17 12:27 Dose: 25 mg Hydroxyzine HCl (Atarax) 25 mg PO Q4H PRN PRN Reason: Itching Last Admin: 04/02/17 08:28 Dose: 25 mg Ibuprofen (Motrin) 600 mg PO Q6H PRN PRN Reason: Pain Last Admin: 04/01/17 15:09 Dose: 600 mg Morphine Sulfate (Morphine) 2 mg IVPUSH Q2H PRN PRN Reason: Pain Last Admin: 04/01/17 06:56 Dose: 2 mg Ondansetron HCl (Zofran Odt) 4 mg PO Q4H PRN PRN Reason: Nausea/Vomiting Last Admin: 04/02/17 11:46 Dose: 4 mg Promethazine HCl (Phenergan) 25 mg IM Q6H PRN PRN Reason: Nausea Scopolamine (Transderm-Scop) 1.5 mg TRDERM Q72H PRN PRN Reason: Nausea Last Admin: 03/31/17 12:19 Dose: 1.5 mg Tramadol HCl (Ultram) 50 mg PO Q4H PRN PRN Reason: Pain Last Admin: 04/02/17 11:46 Dose: 50 mg Discontinued Medications Hydrocodone Bitart/Acetaminophen ([place] 325-5 Mg) 1 tab PO Q4H PRN PRN Reason: Pain Last Admin: 04/01/17 08:02 Dose: 2 tab Bupivacaine HCl/Epinephrine Bitart ([place] 0.25%/Epinephrine 1:200,000) 40 ml INJECT ONETIME ONE Stop: 03/31/17 09:01 Last Admin: 03/31/17 20:21 Dose: Not Given Bupivacaine HCl/Epinephrine Bitart ([place] 0.25%/Epinephrine 1:200,000) Confirm Administered Dose 30 ml .ROUTE .STK-MED ONE Stop: 03/31/17 09:11 Bupivacaine HCl/Epinephrine Bitart ([place] 0.25%/Epinephrine 1:200,000) Confirm Administered Dose 30 ml .ROUTE .STK-MED ONE Stop: 03/31/17 13:21 Bupivacaine Liposome (Exparel) 0 ml INJECT .STK-MED ONE Stop: 03/31/17 14:57 Cefazolin Sodium (Ancef) Confirm Administered Dose 1 gm .ROUTE .STK-MED ONE Stop: 03/31/17 09:12 Epinephrine HCl (Adrenalin 1:1000) Confirm Administered Dose 1 mg .ROUTE .STK- MED ONE Stop: 03/31/17 09:12 Fentanyl (Sublimaze) Confirm Administered Dose 100 mcg .ROUTE .STK-MED ONE Stop: 03/31/17 12:40 Fentanyl (Sublimaze) Confirm Administered Dose 250 mcg .ROUTE .STK-MED ONE Stop: 03/31/17 12:40 Fentanyl (Sublimaze) Confirm Administered Dose 100 mcg .ROUTE .STK-MED ONE Stop: 03/31/17 15:47 Fentanyl (Sublimaze) 50 mcg IVPUSH Q5M PRN PRN Reason: Pain (severe 7-10) Stop: 04/01/17 18:50 Last Admin: 03/31/17 19:22 Dose: 50 mcg Gentamicin Sulfate (Gentamicin) Confirm Administered Dose 80 mg .ROUTE .STK-MED ONE Stop: 03/31/17 09:11 Glycopyrrolate () Confirm Administered Dose 2 mg .ROUTE .STK-MED ONE Stop: 03/31/17 15:06 Hydromorphone HCl (Dilaudid) Confirm Administered Dose 2 mg .ROUTE .STK-MED ONE Stop: 03/31/17 12:48 Hydroxyzine HCl (Atarax) 25 mg PO Q6H PRN PRN Reason: Itching Last Admin: 04/01/17 09:32 Dose: 25 mg Lactated Ringer's (Ringers, Lactated) 1,000 mls @ 125 mls/hr IV ASDIRECTED MICHELINE Last Admin: 04/01/17 03:13 Dose: 125 mls/hr Cefazolin Sodium/Dextrose 2 gm (/ Premix) 50 mls @ 100 mls/hr IV ONETIME ONE Stop: 03/31/17 09:29 Last Admin: 03/31/17 20:21 Dose: Not Given Lidocaine (Xylocaine-Mpf 2%) Confirm Administered Dose 10 ml .ROUTE .STK-MED ONE Stop: 03/31/17 12:39 Methylene Blue (Provayblue) Confirm Administered Dose 50 mg IV .STK-MED ONE Stop: 03/31/17 07:40 Midazolam HCl (Versed 1 Mg/Ml) Confirm Administered Dose 2 mg .ROUTE .STK-MED ONE Stop: 03/31/17 12:40 Neostigmine Methylsulfate (Neostigmine) Confirm Administered Dose 5 mg .ROUTE .STK-MED ONE Stop: 03/31/17 15:06 Ondansetron HCl (Zofran) 4 mg IVPUSH Q6H PRN PRN Reason: Nausea/Vomiting Last Admin: 04/01/17 06:44 Dose: 4 mg Ondansetron HCl (Zofran) Confirm Administered Dose 8 mg .ROUTE .STK-MED ONE Stop: 03/31/17 12:41 Propofol (Diprivan 20 Ml) Confirm Administered Dose 400 mg .ROUTE .STK-MED ONE Stop: 03/31/17 12:40 Propofol (Diprivan 20 Ml) Confirm Administered Dose 1,600 mg .ROUTE .STK-MED ONE Stop: 03/31/17 14:55 Rocuronium [place] (Zemuron) Confirm Administered Dose 100 mg .ROUTE .STK-MED ONE Stop: 03/31/17 15:06 Rocuronium [place] (Zemuron) Confirm Administered Dose 100 mg .ROUTE .STK-MED ONE Stop: 03/31/17 17:10 Succinylcholine Chloride (Succinylcholine In Ns Pf) Confirm Administered Dose 200 mg .ROUTE .STK-MED ONE Stop: 03/31/17 12:41 - Exam Wound/Incisions: dressing dry and intact, drainage (Suction bulbs contain scant serosanguineous drainage.) Lungs: Normal respiratory effort Cardiovascular: Regular Rate Abdomen: soft, no tenderness Extremities: no edema, normal pulses Skin: warm, dry, intact - Problem List & Annotations (1) Breast cancer in female SNOMED Code(s): 117880506 Code(s): C50.919 - MALIGNANT NEOPLASM OF UNSP SITE OF UNSPECIFIED FEMALE BREAST Status: Acute Priority: High Current Visit: Yes Qualifiers: Breast location: upper outer quadrant of breast Estrogen receptor status: unspecified Laterality: right Qualified Code(s): C50.411 - Malignant neoplasm of upper-outer quadrant of right female breast - Problem List Review Problem List Initiated/Reviewed/Updated: Yes - My Orders Last 24 Hours: Active Orders 24 hr Category Date Time Status diphenhydrAMINE [Benadryl] Med 04/02/17 11:05 Active 25 mg PO Q6H PRN hydrOXYzine HCl [Atarax] Med 04/01/17 14:50 Active 25 mg PO Q4H PRN traMADol [Ultram] Med 04/02/17 11:03 Active 50 mg PO Q4H PRN Medication Orders Hydrocodone Bitart/Acetaminophen ([place] 325-10 Mg) 1 tab PO Q4H PRN PRN Reason: Pain Last Admin: 04/02/17 08:27 Dose: 2 tab Admin: 04/02/17 04:14 Dose: 2 tab Admin: 04/01/17 22:09 Dose: 2 tab Admin: 04/01/17 18:08 Dose: 2 tab Admin: 04/01/17 12:05 Dose: 2 tab Cephalexin (Keflex) 500 mg PO Q6HR [facility] Last Admin: 04/02/17 11:46 Dose: 500 mg Admin: 04/02/17 05:55 Dose: 500 mg Admin: 04/02/17 00:04 Dose: 500 mg Admin: 04/01/17 18:08 Dose: 500 mg Admin: 04/01/17 12:05 Dose: 500 mg Admin: 04/01/17 06:44 Dose: 500 mg Admin: 04/01/17 00:59 Dose: 500 mg Admin: 03/31/17 20:52 Dose: Not Given Cyclobenzaprine HCl (Flexeril) 10 mg PO TID MIC[facility] Last Admin: 04/02/17 05:55 Dose: 10 mg Admin: 04/01/17 22:09 Dose: 10 mg Admin: 04/01/17 13:43 Dose: 10 mg Admin: 04/01/17 06:44 Dose: 10 mg Admin: 03/31/17 21:47 Dose: 10 mg Diphenhydramine HCl (Benadryl) 25 mg PO Q6H PRN PRN Reason: Itching Last Admin: 04/02/17 12:27 Dose: 25 mg Hydroxyzine HCl (Atarax) 25 mg PO Q4H PRN PRN Reason: Itching Last Admin: 04/02/17 08:28 Dose: 25 mg Admin: 04/02/17 04:16 Dose: 25 mg Admin: 04/02/17 00:07 Dose: 25 mg Admin: 04/01/17 19:12 Dose: 25 mg Admin: 04/01/17 15:09 Dose: 25 mg Ibuprofen (Motrin) 600 mg PO Q6H PRN PRN Reason: Pain Last Admin: 04/01/17 15:09 Dose: 600 mg Morphine Sulfate (Morphine) 2 mg IVPUSH Q2H PRN PRN Reason: Pain Last Admin: 04/01/17 06:56 Dose: 2 mg Admin: 04/01/17 01:00 Dose: 2 mg Admin: 03/31/17 21:49 Dose: 2 mg Admin: 03/31/17 20:20 Dose: 2 mg Ondansetron HCl (Zofran Odt) 4 mg PO Q4H PRN PRN Reason: Nausea/Vomiting Last Admin: 04/02/17 11:46 Dose: 4 mg Admin: 04/02/17 05:55 Dose: 4 mg Admin: 04/02/17 00:04 Dose: 4 mg Admin: 04/01/17 18:08 Dose: 4 mg Admin: 04/01/17 12:05 Dose: 4 mg Promethazine HCl (Phenergan) 25 mg IM Q6H PRN PRN Reason: Nausea Scopolamine (Transderm-Scop) 1.5 mg TRDERM Q72H PRN PRN Reason: Nausea Last Admin: 03/31/17 12:19 Dose: 1.5 mg Tramadol HCl (Ultram) 50 mg PO Q4H PRN PRN Reason: Pain Last Admin: 04/02/17 11:46 Dose: 50 mg - Plan Plan (Free Text/Narrative):: Dr. Megha Epstein also saw the patient this morning. She'll be switched to Ultram and Benadryl to try and help with the pruritic feeling. She is doing well from my standpoint and can follow-up with me in clinic in 2 weeks. Will continue to follow along until discharge. The remainder of cares per Dr. Ch team.
--- NOTE | 2017-04-02 15:39 | PCM.SN ---
- Free Text/Narrative Note: Doing well with pain medication and itching is better. Still worried about desatting at night and they may opt to stay one more night to watch this. Home later today or tomorrow am. Scripts sent to [facility]. Discharge instructions prepared and we will wait to see how she is doing later today.
[2017-04-02] MEDS: Ibuprofen 600 MG Tab PO PRN (17:27)
[2017-04-03] MEDS: traMADol 50 MG Tab PO PRN ×2 (04:37→09:20)
[2017-04-03] MEDS: Cephalexin 500 MG Cap PO SCH (06:09)
[2017-04-03] MEDS: Ondansetron 4 MG Tab.DIS PO PRN (06:09)
[2017-04-03] MEDS: Cyclobenzaprine 10 MG Tab PO SCH (06:09)
[2017-04-03] MEDS: Ibuprofen 600 MG Tab PO PRN (06:12)
[2017-04-03 08:45] VITALS: BP 100/44
--- NOTE | 2017-04-03 10:13 | PCM.SN ---
- Free Text/Narrative Note: Feeling well today. No nausea and pain controlled. Home this am. no shortness of breath or leg pain. Breasts area swollen as expected. Skin flaps healthy and incisions intact. Drainage in VANITA's appropriate. POD 3 s/p breast reconstruction and mastectomy. home today ultram 50mg q 4 prn pain zofran 4mg q4 prn nausea flexeril 5mg po q 6 prn spasm keflex 500mg po q 6 Ambulate and flex legs while sitting every hour. 10lb weight limit, diet as tolerated follow up wednesday - sooner with any issues or concerns.
--- NOTE | 2017-04-03 10:23 | PCM.DCSUM1 ---
Discharge Summary - Hospital Course Free Text/Narrative:: admitted Wednesday s/p mastectomy and breast reconstruction with implants. She has done well and used IV medications on POD1. Ambulating and tolerating PO. IV removed POD 1 due to presence in forbidden extremity. NO IV medication usage since then and transitioned to Ultram yesterday due to itching. Benadryl helping with itching as well. Minor desaturations at night during the first days but improved. Home today on oral medication (Ultram flexeril zofran and keflex). - Discharge Data Discharge Date: 04/03/17 Discharge Disposition: Home, Self-Care 01 Condition: Good - Discharge Diagnosis/Problem(s) (1) Admission for breast reconstruction following mastectomy SNOMED Code(s): 173612851 ICD Code: Z42.1 - ENCOUNTER FOR BREAST RECONSTRUCTION FOLLOWING MASTECTOMY Status: Acute Priority: High Current Visit: Yes (2) Breast cancer in female SNOMED Code(s): 743583333 ICD Code: C50.919 - MALIGNANT NEOPLASM OF UNSP SITE OF UNSPECIFIED FEMALE BREAST Status: Acute Priority: High Current Visit: Yes Qualifiers: Breast location: upper outer quadrant of breast Estrogen receptor status: unspecified Laterality: right Qualified Code(s): C50.411 - Malignant neoplasm of upper-outer quadrant of right female breast - Patient Summary/Data Operative Procedure(s) Performed: bilatera breast reconstruction with submuscular silicone implant and allomax (after [place] - bilateral mastectomy and right axillary dissection.) - Patient Instructions Diet: Usual Diet as Tolerated Activity: Apply Ice, Elevate Extremity, No Lifting Over 10 Pounds, No Strenuous Activities, Rest and Relax Today Driving: Do Not Drive (while taking narcotics) Showering/Bathing: May Shower Wound/Incision Care: Change Dressing Daily Notify Provider of: Fever, Increased Pain, Swelling and Redness, Drainage, Nausea and/or Vomiting - Discharge Plan Prescriptions/Med Rec: Cephalexin [IJD: Cephalexin] 500 mg PO Q6HR 5 Days Cyclobenzaprine HCl 5 mg PO Q6HR PRN #20 tablet PRN Reason: Spasms traMADol [Ultram] 50 mg PO Q4H PRN #40 tablet PRN Reason: Pain Home Medications: Home Meds Diphenoxylate HCl/Atropine [Diphenoxylate-Atrop 2.5-0.025] 1 tab PO ASDIRECTED PRN 03/25/17 [History] Escitalopram Oxalate 5 mg PO DAILY 03/25/17 [History] LORazepam [Ativan] 0.5 mg PO ASDIRECTED PRN 03/25/17 [History] Melatonin 3 mg PO ASDIRECTED PRN 03/25/17 [History] Metoclopramide HCl 10 mg PO ASDIRECTED PRN 03/25/17 [History] Ondansetron HCl [Zofran] 8 mg PO ASDIRECTED PRN 03/25/17 [History] Cephalexin [IJD: Cephalexin] 500 mg PO Q6HR 5 Days 04/02/17 [Rx] diphenhydrAMINE [Benadryl] 25 mg PO Q6H PRN #0 cap 04/02/17 [Rx] traMADol [Ultram] 50 mg PO Q4H PRN #40 tablet 04/02/17 [Rx] Cyclobenzaprine HCl 5 mg PO Q6HR PRN #20 tablet 04/03/17 [Rx] Patient Handouts: Cyclobenzaprine tablets, Total or Modified Radical Mastectomy , Tramadol tablets, Cephalexin tablets or capsules Referrals: Luciana Epstein MD [Physician] - 04/06/17 12:45 pm () - Discharge Summary/Plan Comment DC Time >30 min.: No Discharge Summary/Plan Comment: home today oral medications. - General Info Date of Service: 04/03/17 Admission Dx/Problem (Free Text: s/p breast reconstruction pod 1 Subjective Update: pain improved significantly. 02 stable. No nausea. No itching - Review of Systems General: Reports: No Symptoms HEENT: Reports: no symptoms Pulmonary: Reports: no symptoms Cardiovascular: Reports: No Symptoms Musculoskeletal: Reports: no symptoms Skin: Reports: no symptoms Neurological: Reports: No Symptoms Psychiatric: Reports: no symptoms - Patient Data Vitals - Most Recent: Last Vital Signs Temp 97.6 F 04/03/17 08:44 Pulse 77 04/03/17 08:44 Resp 16 04/03/17 08:44 BP 100/44 L 04/03/17 08:44 Pulse Ox 89 L 04/03/17 08:44 Weight - Most Recent: 185 lb I&O - Last 24 hours: Intake & Output 04/02/17 04/03/17 04/03/17 23:59 07:59 15:59 Intake Total 200 680 Output Total 470 607 Balance -270 73 Med Orders - Current: Current Medications Hydrocodone Bitart/Acetaminophen ([place] 325-10 Mg) 1 tab PO Q4H PRN PRN Reason: Pain Last Admin: 04/02/17 21:01 Dose: 1 tab Cephalexin (Keflex) 500 mg PO Q6HR MICHELINE Last Admin: 04/03/17 06:09 Dose: 500 mg Cyclobenzaprine HCl (Flexeril) 10 mg PO TID MICHELINE Last Admin: 04/03/17 06:09 Dose: 10 mg Diphenhydramine HCl (Benadryl) 25 mg PO Q6H PRN PRN Reason: Itching Last Admin: 04/02/17 20:31 Dose: 25 mg Hydroxyzine HCl (Atarax) 25 mg PO Q4H PRN PRN Reason: Itching Last Admin: 04/02/17 08:28 Dose: 25 mg Ibuprofen (Motrin) 600 mg PO Q6H PRN PRN Reason: Pain Last Admin: 04/03/17 06:12 Dose: 600 mg Morphine Sulfate (Morphine) 2 mg IVPUSH Q2H PRN PRN Reason: Pain Last Admin: 04/01/17 06:56 Dose: 2 mg Ondansetron HCl (Zofran Odt) 4 mg PO Q4H PRN PRN Reason: Nausea/Vomiting Last Admin: 04/03/17 06:09 Dose: 4 mg Promethazine HCl (Phenergan) 25 mg IM Q6H PRN PRN Reason: Nausea Scopolamine (Transderm-Scop) 1.5 mg TRDERM Q72H PRN PRN Reason: Nausea Last Admin: 03/31/17 12:19 Dose: 1.5 mg Tramadol HCl (Ultram) 50 mg PO Q4H PRN PRN Reason: Pain Last Admin: 04/03/17 09:20 Dose: 50 mg Discontinued Medications Hydrocodone Bitart/Acetaminophen ([place] 325-5 Mg) 1 tab PO Q4H PRN PRN Reason: Pain Last Admin: 04/01/17 08:02 Dose: 2 tab Bupivacaine HCl/Epinephrine Bitart (Marcaine 0.25%/Epinephrine 1:200,000) 40 ml INJECT ONETIME ONE Stop: 03/31/17 09:01 Last Admin: 03/31/17 20:21 Dose: Not Given Bupivacaine HCl/Epinephrine Bitart (Marcaine 0.25%/Epinephrine 1:200,000) Confirm Administered Dose 30 ml .ROUTE .STK-MED ONE Stop: 03/31/17 09:11 Bupivacaine HCl/Epinephrine Bitart (Marcaine 0.25%/Epinephrine 1:200,000) Confirm Administered Dose 30 ml .ROUTE .STK-MED ONE Stop: 03/31/17 13:21 Bupivacaine Liposome (Exparel) 0 ml INJECT .STK-MED ONE Stop: 03/31/17 14:57 Cefazolin Sodium (Ancef) Confirm Administered Dose 1 gm .ROUTE .STK-MED ONE Stop: 03/31/17 09:12 Epinephrine HCl (Adrenalin 1:1000) Confirm Administered Dose 1 mg .ROUTE .STK- MED ONE Stop: 03/31/17 09:12 Fentanyl (Sublimaze) Confirm Administered Dose 100 mcg .ROUTE .STK-MED ONE Stop: 03/31/17 12:40 Fentanyl (Sublimaze) Confirm Administered Dose 250 mcg .ROUTE .STK-MED ONE Stop: 03/31/17 12:40 Fentanyl (Sublimaze) Confirm Administered Dose 100 mcg .ROUTE .STK-MED ONE Stop: 03/31/17 15:47 Fentanyl (Sublimaze) 50 mcg IVPUSH Q5M PRN PRN Reason: Pain (severe 7-10) Stop: 04/01/17 18:50 Last Admin: 03/31/17 19:22 Dose: 50 mcg Gentamicin Sulfate (Gentamicin) Confirm Administered Dose 80 mg .ROUTE .STK-MED ONE Stop: 03/31/17 09:11 Glycopyrrolate () Confirm Administered Dose 2 mg .ROUTE .STK-MED ONE Stop: 03/31/17 15:06 Hydromorphone HCl (Dilaudid) Confirm Administered Dose 2 mg .ROUTE .STK-MED ONE Stop: 03/31/17 12:48 Hydroxyzine HCl (Atarax) 25 mg PO Q6H PRN PRN Reason: Itching Last Admin: 04/01/17 09:32 Dose: 25 mg Lactated Ringer's (Ringers, Lactated) 1,000 mls @ 125 mls/hr IV ASDIRECTED [facility] Last Admin: 04/01/17 03:13 Dose: 125 mls/hr Cefazolin Sodium/Dextrose 2 gm (/ Premix) 50 mls @ 100 mls/hr IV ONETIME ONE Stop: 03/31/17 09:29 Last Admin: 03/31/17 20:21 Dose: Not Given Lidocaine (Xylocaine-Mpf 2%) Confirm Administered Dose 10 ml .ROUTE .STK-MED ONE Stop: 03/31/17 12:39 Methylene Blue (Provayblue) Confirm Administered Dose 50 mg IV .STK-MED ONE Stop: 03/31/17 07:40 Midazolam HCl (Versed 1 Mg/Ml) Confirm Administered Dose 2 mg .ROUTE .STK-MED ONE Stop: 03/31/17 12:40 Neostigmine Methylsulfate (Neostigmine) Confirm Administered Dose 5 mg .ROUTE .STK-MED ONE Stop: 03/31/17 15:06 Ondansetron HCl (Zofran) 4 mg IVPUSH Q6H PRN PRN Reason: Nausea/Vomiting Last Admin: 04/01/17 06:44 Dose: 4 mg Ondansetron HCl (Zofran) Confirm Administered Dose 8 mg .ROUTE .STK-MED ONE Stop: 03/31/17 12:41 Propofol (Diprivan 20 Ml) Confirm Administered Dose 400 mg .ROUTE .STK-MED ONE Stop: 03/31/17 12:40 Propofol (Diprivan 20 Ml) Confirm Administered Dose 1,600 mg .ROUTE .STK-MED ONE Stop: 03/31/17 14:55 Rocuronium [place] (Zemuron) Confirm Administered Dose 100 mg .ROUTE .STK-MED ONE Stop: 03/31/17 15:06 Rocuronium [place] (Zemuron) Confirm Administered Dose 100 mg .ROUTE .STK-MED ONE Stop: 03/31/17 17:10 Succinylcholine Chloride (Succinylcholine In Ns Pf) Confirm Administered Dose 200 mg .ROUTE .STK-MED ONE Stop: 03/31/17 12:41 - Exam General: Reports: alert, oriented, cooperative, no acute distress Lungs: Reports: Normal respiratory effort Skin: Reports: warm, dry Wound/Incisions: Reports: healing well, drainage (in VANITA as expected. ) Psy/Mental Status: Reports: alert Discharge Operative/Procedures - Procedures Performed Operations/Procedure Comment: implant breast reconstruction s/p mastectomy bilateral *Q Meaningful Use (DIS) - VTE *Q VTE Criteria *Q: VTE Pharmacological Contraindications *Q: Risk of Bleeding VTE Anticoagulation Contraindications: Med/TX not Indicated/Need - Stroke *Q Stroke Criteria *Q: Anticoagulation Contraindications Stroke *Q: Med/tx not indicated/need Antithrombotic Contraindications Stroke *Q: Med/tx not indicated/need Statin Contraindications Stroke *Q: Med/tx not indicated/need Rehabilitation Assessment Contraindication *Q: Med/tx not indicated/need - AMI *Q AMI Criteria *Q: Aspirin Contraindications AMI *Q: Med/tx not indicated/need Statin Contraindications AMI *Q: Med/tx not indicated/need
--- NOTE | 2017-04-15 10:20 | OR ---
SURGEON: JUVE SAMPSON MD DATE OF PROCEDURE: 03/31/2017 PREOPERATIVE DIAGNOSIS: Breast cancer, need for reconstruction, status post mastectomy. POSTOPERATIVE DIAGNOSIS: Breast cancer, need for reconstruction, status post mastectomy. PROCEDURE: Bilateral breast immediate reconstruction with submuscular silicone implant and the AlloMax immediately following bilateral mastectomy. USABILITY ENGINEER: MICHELA Roche INDICATIONS: Ms. Juan is a 51-year-old female seen today in evaluation for breast reconstruction. We will be doing a conjunction bilateral mastectomy and right axillary node dissection with Dr. Arriaza. Once this was complete, we will proceed with immediate reconstruction using 700 mL Natrelle silicone-filled breast implant, style 45. Risks and benefits were discussed with her and she was in agreement to proceed. Risks were including, but not limited to, bleeding, infection, damage to underlying or overlying structures, possible need for future interventions and possible scarring. PROCEDURE IN DETAIL: After informed consent was obtained and placed on the chart, the patient was brought to the operating theater and laid in supine position. After adequate general anesthetic was obtained, the area was prepped and draped in normal fashion with a double draped and a time-out was completed to confirm side and site. Attention was first paid to Dr. Arriaza's portion of the case, which I was assistant in nursing. Once this was completed, the outer drapes were removed, the lower drapes were left in place, and a new instrument setup was used. New time-out was completed and side and site were confirmed. Once adequately irrigated and meticulous hemostasis was obtained, attention was then paid to elevation of the pectoralis muscle. This was done without difficulty and the AlloMax was prepped in the normal fashion in triple antibiotic solution. Once adequately prepped, this was laid in place and sutured in place using a 2-0 PDS suture for sparse [id number] fashion sutures. Once this was completed, the implants were placed in the pocket. Reference #[id number], serial number on the left is [id number] and on the right is [id number]. Once this was placed and secured, the area was copiously irrigated and meticulous hemostasis was again ensured. The skin flaps were then redraped over in a reduction pattern and sutured in place with deep 3-0 Monocryl stitches and a running 4-0 subcuticular for the skin. These were dressed with Steri-Strips. Two size 7 VANITA drains were placed, one above and one below the AlloMax prior to closure and brought out laterally. The right axilla size 10 VANITA drain was placed for the axillary dissection. These were sutured in place using 3-0 Prolene stitches. Once adequately placed, the wounds were dressed with Steri-Strips, fluffs, and the drain sites were dressed with Xeroform. A compression bra with fluffs was used to secure this in place. The patient tolerated the procedure well. All counts and needles were correct at the end of the case. FOLLOWUP INSTRUCTIONS: The patient will be maintained in the hospital overnight and she will call with any concerns or questions. HEGGTHE / JAG /[id number]
--- NOTE | 2017-04-26 15:19 | NM ---
EXAMINATION: Left breast lymphoscintigraphy HISTORY: Malignant neoplasm of the breast COMPARISON: None TECHNIQUE: The periareolar region was sterilely prepped with ChloraPrep. A total of 8 intradermal in jections were performed in the periareolar region of the left breast using approximately 1 mCi of te chnetium 99m labeled sulfur colloid.
== END 2017-04-03 11:15 | disposition home or self-care (01) ==
LOC: MW.SDS 07:36 → MW.MS 19:08
PROVIDERS: ADMIT Plastic Surgery; ATTEND Plastic Surgery
DX: C50.411 Malignant neoplasm of upper-outer quadrant of right female breast (principal); N60.12 Diffuse cystic mastopathy of left breast; I10 Essential (primary) hypertension; F32.9 Major depressive disorder, single episode, unspecified; F41.9 Anxiety disorder, unspecified; Z88.1 Allergy status to other antibiotic agents; Z88.2 Allergy status to sulfonamides; Z79.899 Other long term (current) drug therapy; Z98.890 Other specified postprocedural states; Z98.84 Bariatric surgery status; Z90.710 Acquired absence of both cervix and uterus
CPT/HCPCS: 19307; 38525; 76098; 88305; 88307; 88309; 88331; 88332; A9270; C1762; C1789; G0378; J0171; J0690; J1170; J1580; J2250; J2270; J2405; J3010; J7120; 00404; 38792; A9541; J2704; Q9968